=== PATIENT | female | born 1970 | race Caucasian/White ===

== ENCOUNTER 2018-09-30 06:27 | Observation (INO) | payer OTHER ==
[2018-09-30] MEDS ORDERED: NEOSTIGMINE 3 MG/3 ML SYRINGE (07:00)
[2018-09-30] MEDS ORDERED: GLYCOPYRROLATE 0.4 MG INJ (07:00)
[2018-09-30] MEDS ORDERED: PROPOFOL 20 ML (08:10)
[2018-09-30] MEDS ORDERED: ROCURONIUM 50 MG INJ (08:10)
[2018-09-30] MEDS ORDERED: SUCCINYLCHOLINE CHLORIDE 100 MG/5 ML SYG IV (08:10)
[2018-09-30] MEDS ORDERED: MIDAZOLAM 1 MG/ML 2 ML INJ (08:10)
[2018-09-30] MEDS ORDERED: LIDOCAINE 2% (SDV) 5 ML INJ (08:10)
[2018-09-30] MEDS ORDERED: FENTAnyl 50 MCG/ML VIAL (08:13)
[2018-09-30] MEDS ORDERED: DEXAMETHASONE 4 MG/ML 1 ML INJ (08:29)
[2018-09-30] MEDS ORDERED: ONDANSETRON 4 MG INJ (08:29)
[2018-09-30] MEDS ORDERED: CEFAZOLIN 1 GM INJ (08:29)
[2018-09-30] MEDS ORDERED: FAMOTIDINE 20 MG INJ (08:29)
[2018-09-30] MEDS: THROMBIN 20,000 UNIT VIAL ZFS ×2 (08:30→16:15)
[2018-09-30] MEDS: POLYMYXIN/BACITRACIN 1L IRRIG (08:34)
[2018-09-30] MEDS: BUPIVACAINE 0.25%/EPI (SDV) 10 ML INJ (08:34)
[2018-09-30] MEDS: GELATIN SIZE 100 SPONGE (08:34)
[2018-09-30] MEDS ORDERED: GELATIN SIZE 100 SPONGE (09:10)
[2018-09-30] MEDS ORDERED: HYDROmorphONE 2 MG/ML SYG (10:46)
[2018-09-30] MEDS ORDERED: PROCHLORPERAZINE 10 MG TAB PO (11:30)
[2018-09-30] MEDS ORDERED: ONDANSETRON 4 MG INJ IV (11:30)
[2018-09-30] MEDS ORDERED: NACL 0.9% 3 ML SYG IV (11:30)
[2018-09-30] MEDS ORDERED: ACETAMINOPHEN 325 MG TAB PO (11:30)
[2018-09-30] MEDS ORDERED: AL HYDROX/MG HYDROX/SIMETH 30 ML CUP PO (11:30)
[2018-09-30] MEDS ORDERED: HYDROCODONE/APAP (5/325) TAB PO (11:30)
[2018-09-30] MEDS ORDERED: CEFAZOLIN 1 GM/50 ML (PMX) 50 ML IVPB (12:00)
[2018-09-30] MEDS: NALOXONE (0.4 MG/ML) INJ IV (12:43)
[2018-09-30] MEDS: HYDROCODONE/APAP (5/325) TAB PO ×3 (12:48→23:12)
[2018-09-30] MEDS: HYDROmorphONE 0.5 MG/0.5 ML SYG IV ×2 (13:48→17:08)
[2018-09-30] MEDS: CEFAZOLIN 1 GM/50 ML (PMX) 50 ML IVPB (18:16)
[2018-10-01] MEDS: CEFAZOLIN 1 GM/50 ML (PMX) 50 ML IVPB ×3 (00:28→12:01)
[2018-10-01] MEDS: HYDROCODONE/APAP (5/325) TAB PO ×4 (06:12→21:31)
[2018-10-01] MEDS: DOCUSATE SODIUM 100 MG CAP PO ×2 (10:10→21:00)
[2018-10-01] MEDS: DEXAMETHASONE 10 MG/ML 1 ML INJ IV (10:50)
[2018-10-02] MEDS: HYDROCODONE/APAP (5/325) TAB PO ×2 (03:18→08:54)
[2018-10-02] MEDS: DOCUSATE SODIUM 100 MG CAP PO (08:49)
== END 2018-10-02 11:48 | disposition home or self-care (01) ==
LOC: SDS 06:27 → REC 11:05 → MS1 16:19
DX: M48.062 Spinal stenosis, lumbar region with neurogenic claudication (principal); M51.16 Intervertebral disc disorders with radiculopathy, lumbar region
CPT/HCPCS: 63030; 72100; 84703; 88304; 97110; 97116; 97161; 97530; 99217